=== PATIENT | female | born 1950 | race Asian ===

== ENCOUNTER 2018-01-04 01:46 | Emergency (ER) | payer MEDICARE ==
[~2018-01-04] VITALS: Ht 160 cm; Wt 64.5 kg
[2018-01-04 01:46] VITALS: BP 194/96; PULSE 82; RESP 16; TEMP 98.6; O2SAT 97
[2018-01-04] MEDS ORDERED: LIPI20TA PO (01:57)
[2018-01-04 02:40] VITALS: BP 167/91; PULSE 76; RESP 18; O2SAT 98
[2018-01-04 02:41] VITALS: BP_SYST 167; BP_SYST 183; BP_DIAS 76; BP_DIAS 91; PULSE 76; RESP 18; O2SAT 98
[2018-01-04] MEDS ORDERED: ASPIRIN 81 MG CHEW TAB PO ONE (02:45)
[2018-01-04] MEDS ORDERED: SODIUM CHLORIDE 0.9% FLUSH 10 ML FLUSH IVF PRN (02:45)
[2018-01-04 02:55] VITALS: BP 158/82; PULSE 73
[2018-01-04 03:00] LABS: AUTOMATED NEUTROPHIL # 7.3 TH/MM3 (1.8-7.7); BASOPHIL % 0.4 % (0.0-2.0); EOSINOPHIL # 0.1 TH/MM3 (0-0.4); EOSINOPHIL % 0.7 % (0.0-4.0); HEMATOCRIT 40.1 % (35.0-46.0); HEMOGLOBIN 13.6 GM/DL (11.6-15.3); LYMPH % 21.5 % (9.0-44.0); LYMPHOCYTE # 2.2 TH/MM3 (1.0-4.8); MEAN CELL VOLUME 89.7 FL (80.0-100.0); MEAN CORPUSCULAR HEMOGLOBIN 30.4 PG (27.0-34.0); MEAN CORPUSCULAR HGB CONC 33.9 % (32.0-36.0); MEAN PLATELET VOLUME 8.6 FL (7.0-11.0); MONO % 5.8 % (0.0-8.0); MONOCYTE # 0.6 TH/MM3 (0-0.9); NEUT % 71.6 % (16.0-70.0); PLATELET COUNT 431 TH/MM3 (150-450); RED BLOOD COUNT 4.47 MIL/MM3 (4.00-5.30); WHITE BLOOD COUNT 10.2 TH/MM3 (4.0-11.0)
[2018-01-04] MEDS: METOPROLOL TARTRATE 5 MG/5 ML VIAL IVS SCH ×2 (03:00→03:35)
[2018-01-04 03:06] LABS: CHLORIDE 104 MEQ/L (98-107); SODIUM (NA) 139 MEQ/L (136-145)
[2018-01-04 03:10] LABS: ALBUMIN 4.3 GM/DL (3.4-5.0); BICARBONATE 23.8 MEQ/L (21.0-32.0); CALCIUM 9.2 MG/DL (8.5-10.1)
[2018-01-04 03:11] LABS: BLOOD UREA NITROGEN 16 MG/DL (7-18); GLUCOSE,RANDOM 124 MG/DL (74-106); MAGNESIUM 2.2 MG/DL (1.5-2.5)
[2018-01-04 03:13] VITALS: BP 165/86; PULSE 61; RESP 16; O2SAT 98
[2018-01-04 03:13] LABS: ALT (GPT) 23 U/L (10-53); AST (GOT) 13 U/L (15-37)
[2018-01-04 03:14] LABS: CREATININE 0.88 MG/DL (0.50-1.00); GLOMERULAR FILTRATION RATE 64 ML/MIN (>89)
[2018-01-04 03:15] LABS: TOTAL BILIRUBIN ADULT 0.8 MG/DL (0.2-1.0); TOTAL PROTEIN 7.7 GM/DL (6.4-8.2)
[2018-01-04 03:16] LABS: ALKALINE PHOSPHATASE 93 U/L (45-117)
[2018-01-04 03:19] LABS: TROPONIN I LESS THAN 0.02 NG/ML (0.02-0.05)
--- NOTE | 2018-01-04 03:20 | RADRPT ---
EXAM DATE: 01/04/2018 3:12 AM EDT AGE/SEX: 67 years / Female INDICATIONS: Shortness of breath. CLINICAL DATA: This is the patient's initial encounter. Patient reports that signs and symptoms have been present for 1 day and indicates a pain score of 0/10. MEDICAL/SURGICAL HISTORY: None. None. COMPARISON: No prior exams available for comparison. FINDINGS: Single AP view the chest. The lungs are clear. Cardiomediastinal silhouette within normal limits. No evidence of pleural effusion or pneumothorax. CONCLUSION: No acute cardiopulmonary disease identified. Electronically signed by: Homer Edgar MD 01/04/2018 3:19 AM EDT
--- NOTE | 2018-01-04 03:30 | PD ---
HPI Chief Complaint: Hypertension Time Seen by Provider: 02:32 Travel History International Travel<30 days: No Contact w/Intl Traveler<30days: No Traveled to known affect area: No History of Present Illness HPI 67-year-old female with a past medical history of hypercholesteremia and anxiety presents to the emergency room by EMS for an acute episode of anxiety and elevated blood pressure. Patient was told to monitor her blood pressure at home and today she found the pressure was 195/115 at which time she panicked and had an episode with hyperventilation, dizziness, and palpitations. Patient denies any chest pain, shortness of breath, abdominal pain or back pain. PFSH Past Medical History High Cholesterol: Yes Tetanus Vaccination: > 5 Years Influenza Vaccination: No ?: Not Menopausal: Yes : 4 Para: 2 : 2 Tubal Ligation: Yes Past Surgical History Appendectomy: Yes Section: Yes (X2) Other Surgery: Yes (PLASTIC SURGERY: BREAST) Social History Alcohol Use: No Tobacco Use: No (QUIT AGE 36) Substance Use: No Allergies-Medications (Allergen,Severity, Reaction): Coded Allergies: No Known Allergies (Unverified , 01/04/18) Reported Meds & Prescriptions Reported Meds & Active Scripts Active Hydroxyzine HCl 50 Mg Tab 50 Mg PO BID PRN Reported Lipitor (Atorvastatin Calcium) 20 Mg Tab 20 Mg PO HS Review of Systems Except as stated in HPI: all other systems reviewed are Neg General / Constitutional: No: Fever, Chills Eyes: No: Blurred Vision, Redness, Pain HENT: No: Rhinorrhea, Congestion, Neck Stiffness, Neck Pain, Earache Cardiovascular: No: Chest Pain or Discomfort, Palpitations, Dyspnea on exertion Respiratory: No: Cough, Shortness of Breath, Wheezing Gastrointestinal: No: Nausea, Vomiting, Diarrhea, Abdominal Pain, Hematochezia , Constipation Genitourinary: No: Dysuria Musculoskeletal: No: Myalgias Skin: No Rash, No Hives Neurologic: No: Weakness, Dizziness, Syncope, Headache, Slurred Speech, Seizures Psychiatric: No: Suicidal Ideations Physical Exam Narrative Vital Signs Date Time Temp Pulse Resp B/P (MAP) Pulse Ox O2 Delivery O2 Flow Rate FiO2 01/04/18 03:13 61 16 165/86 (112) 98 Room Air 01/04/18 02:55 73 158/82 (107) 01/04/18 02:41 18 98 Room Air 01/04/18 02:41 98 Room Air 01/04/18 02:41 76 18 183/76 (111) 98 Room Air 167 (116) 01/04/18 02:40 76 18 167/91 (116) 98 Room Air 01/04/18 01:46 98.6 82 16 194/96 (128) 97 01/04/18 01:46 Room Air GENERAL: Patient is alert and oriented -3 SKIN: Focused skin assessment warm/dry. HEAD: Atraumatic. Normocephalic. EYES: Pupils equal and round. No scleral icterus. No injection or drainage. ENT: No nasal bleeding or discharge. Mucous membranes pink and moist. NECK: Trachea midline. No JVD. CARDIOVASCULAR: Regular rate and rhythm. No murmur appreciated. RESPIRATORY: No accessory muscle use. Clear to auscultation. Breath sounds equal bilaterally. GASTROINTESTINAL: Abdomen soft, non-tender, nondistended. Hepatic and splenic margins not palpable. MUSCULOSKELETAL: No obvious deformities. No clubbing. No cyanosis. No edema. NEUROLOGICAL: Awake and alert. No obvious cranial nerve deficits. Motor grossly within normal limits. Normal speech. PSYCHIATRIC: Appropriate mood and affect; insight and judgment normal. Data Data Last Documented VS Vital Signs Date Time Temp Pulse Resp B/P (MAP) Pulse Ox O2 Delivery O2 Flow Rate FiO2 01/04/18 04:20 01/04/18 03:34 65 16 95 Room Air 01/04/18 01:46 98.6 Vital Signs Date Time Temp Pulse Resp B/P (MAP) Pulse Ox O2 Delivery O2 Flow Rate FiO2 01/04/18 04:20 01/04/18 03:34 65 16 126/72 (90) 95 Room Air 01/04/18 03:13 61 16 165/86 (112) 98 Room Air 01/04/18 02:55 73 158/82 (107) 01/04/18 02:41 18 98 Room Air 01/04/18 02:41 98 Room Air 01/04/18 02:41 76 18 183/76 (111) 98 Room Air 167 (116) 01/04/18 02:40 76 18 167/91 (116) 98 Room Air 01/04/18 01:46 98.6 82 16 194/96 (128) 97 01/04/18 01:46 Room Air Orders Orders Electrocardiogram (01/04/18 02:32) Complete Blood Count With Diff (01/04/18 02:32) Comprehensive Metabolic Panel (01/04/18 02:32) D-Dimer (01/04/18 02:32) Magnesium (Mg) (01/04/18 02:32) Troponin I (01/04/18 02:32) Lipase (01/04/18 02:32) Chest, Single Ap (01/04/18 02:32) Ecg Monitoring (01/04/18 02:32) Bilateral Bp Monitoring (01/04/18 02:32) Iv Access Insert/Monitor (01/04/18 02:32) Oximetry (01/04/18 02:32) Oxygen Administration (01/04/18 02:32) Aspirin Chew (Aspirin Chew) (01/04/18 02:45) Sodium Chloride 0.9% Flush (Ns Flush) (01/04/18 02:45) Metoprolol Tartrate Inj (Lopressor Inj) (01/04/18 02:45) Ed Discharge Order (01/04/18 03:36) Labs Laboratory Tests Test 01/04/18 02:48 White Blood Count 10.2 TH/MM3 Red Blood Count 4.47 MIL/MM3 Hemoglobin 13.6 GM/DL Hematocrit 40.1 % Mean Corpuscular Volume 89.7 FL Mean Corpuscular Hemoglobin 30.4 PG Mean Corpuscular Hemoglobin Concent 33.9 % Red Cell Distribution Width 13.0 % Platelet Count 431 TH/MM3 Mean Platelet Volume 8.6 FL Neutrophils (%) (Auto) 71.6 % Lymphocytes (%) (Auto) 21.5 % Monocytes (%) (Auto) 5.8 % Eosinophils (%) (Auto) 0.7 % Basophils (%) (Auto) 0.4 % Neutrophils # (Auto) 7.3 TH/MM3 Lymphocytes # (Auto) 2.2 TH/MM3 Monocytes # (Auto) 0.6 TH/MM3 Eosinophils # (Auto) 0.1 TH/MM3 Basophils # (Auto) 0.0 TH/MM3 CBC Comment DIFF FINAL Differential Comment D-Dimer Quantitative (PE/DVT) 0.19 MG/L FEU Blood Urea Nitrogen 16 MG/DL Creatinine 0.88 MG/DL Random Glucose 124 MG/DL Total Protein 7.7 GM/DL Albumin 4.3 GM/DL Calcium Level 9.2 MG/DL Magnesium Level 2.2 MG/DL Alkaline Phosphatase 93 U/L Aspartate Amino Transf (AST/SGOT) 13 U/L Alanine Aminotransferase (ALT/SGPT) 23 U/L Total Bilirubin 0.8 MG/DL Sodium Level 139 MEQ/L Potassium Level 4.1 MEQ/L Chloride Level 104 MEQ/L Carbon Dioxide Level 23.8 MEQ/L Anion Gap 11 MEQ/L Estimat Glomerular Filtration Rate 64 ML/MIN Troponin I LESS THAN 0.02 NG/ML Lipase 141 U/L MDM Medical Decision Making Medical Screen Exam Complete: Yes Emergency Medical Condition: Yes Medical Record Reviewed: Yes Differential Diagnosis Hypertension, and anxiety, PE Narrative Course Patient condition improved as well as patient arrival to the ED. Patient denies any chest pain, shortness of breath, headache or anxiety. Patient had an extensive workup as an outpatient for cardiac disease or causes of secondary hypertension. I will discharge the patient home after reassurance to follow with primary care physician Diagnosis Primary Impression: Panic attack Additional Impression: Elevated blood pressure reading Referrals: Primary Care Physician 2 days Patient Instructions: General Instructions, Hypertension (DC), Panic Attack (ED ) Scripts Hydroxyzine HCl (Hydroxyzine HCl) 50 Mg Tab 50 MG PO BID Y for MOD - SEVERE ANXIETY/AGITATION, #12 TAB 0 Refills Prov: Jose Arriaga MD 01/04/18 Disposition: 01 DISCHARGE HOME Condition: Stable Jose Arriaga MD Jan 04, 2018 03:29
[2018-01-04 03:34] VITALS: BP 126/72; PULSE 65; RESP 16; O2SAT 95
[2018-01-04] MEDS ORDERED: HYDR50TA94 PO (03:38)
--- NOTE | 2018-01-04 09:02 | EKG ---
Date Performed: 01/04/2018 Time Performed: 02:49:35 PTAGE: 67 years EKG: Sinus rhythm POSSIBLE LEFT ATRIAL ENLARGEMENT BORDERLINE ECG NO PREVIOUS TRACING DOCTOR: Jayme Montanez Interpretating Date/Time 01/04/2018 09:01:26
== END 2018-01-04 04:21 | disposition home or self-care (01) ==
LOC: PHED 01:46
DX: F41.0 Panic disorder [episodic paroxysmal anxiety] (principal); F41.9 Anxiety disorder, unspecified; R06.02 Shortness of breath; I10 Essential (primary) hypertension; E78.00 Pure hypercholesterolemia, unspecified; Z79.899 Other long term (current) drug therapy; Z87.891 Personal history of nicotine dependence
CPT/HCPCS: 71045; 80053; 83690; 83735; 84484; 85025; 85379; 93005; 96374